=== PATIENT | female | born 1995 | race Caucasian/White ===

== ENCOUNTER 2023-05-06 15:06 | Emergency (ER) | payer BC, OTHER, SELFPAY ==
--- NOTE | 2023-05-06 15:12 | PC.NURSE ---
After checking in pt came back to desk and said this lady over here said she been here all day, I'm not staying. Pt is A/O x 4, no distress, skin pwd and gait is steady
== END 2023-05-06 15:56 | disposition left against medical advice (07) ==
DX: Z53.21 Procedure and treatment not carried out due to patient leaving prior to being seen by health care provider (principal)
CPT/HCPCS: 99199

== ENCOUNTER 2023-05-24 21:08 | Observation (INO) | payer BC, OTHER, SELFPAY ==
[2023-05-24 21:29] VITALS: PULSE 96; O2SAT 99
[2023-05-24 21:34] VITALS: PULSE 87; O2SAT 100
[2023-05-24 21:39] VITALS: PULSE 97; O2SAT 100
[2023-05-24 21:45] VITALS: BMI 45.8
--- NOTE | 2023-05-24 21:45 | OBADM ---
This patient, Moriah Redmond, admitted to the OB room [facility] for observation. Patient/family oriented to hospital policies and general routines including ID bracelet, bed and alarms, visiting hours, pain management, procedures, bathroom and other care routines, personal items, smoking policy, room service/diet, and visiting hours. Patient/Family are encouraged to report perceived risks to care and to ask questions if they do not understand what they are told or what they should do.
[2023-05-24 21:54] VITALS: BP 109/40; PULSE 87
[2023-05-24 22:00] VITALS: BP 118/72; PULSE 85
--- NOTE | 2023-05-24 22:07 | PC.NURSE ---
Dr. Mckeon called and made lombardo pt was here for possible leaking of fluid. ROM plus was negative. Dr. Mckeon made aware patient has been eugenie off and on this week and started eugenie eugenie right when she was put on the monitor. Orders for a dose of terbutaline
--- NOTE | 2023-05-24 22:20 | PC.NURSE ---
Pt is refusing terbutaline. Pt educated on reasoning for it.
[2023-05-24 22:35] LABS: Appearance Urine Clear (Clear); Bilirubin Urine Negative (Negative); Blood Urine Negative (Negative); Color Urine Yellow (Yellow); Glucose Urine UA Negative (Negative); Ketones Urine Negative (Negative); Leukocyte Esterase Ur Negative LEU/UL (Negative); Nitrate Urine Negative (Negative); Protein Urine Negative (Negative); Specific Grav Ur 1.009 (1.001-1.035); pH Urine 6.5 (5.0-9.0)
--- NOTE | 2023-05-24 22:43 | PC.NURSE ---
Dr. Mckeon updated pt is refusing terbutaline but contractions have started to slow down. Orders to do SVE, then watch patient and recheck her. Orders to discharge patient if no change.
[2023-05-24 22:46] LABS: Glucose Point of Care 99 mg/dl (65-105)
[2023-05-24 22:50] LABS: Add Urine Microscopic? NO
--- NOTE | 2023-05-25 13:31 | PM.OBTRLD ---
OB - Triage/Final Diagnosis Visit Information Comments/Additional reasons for admission: I have assessed the risk for this patient, Moriah Redmond, and determined that she would benefit from observation care. Evaluation Laboratory results: Laboratory Tests 05/24/23 05/24/23 22:22 22:31 POC Capillary Glucose 99 Urine Color Yellow Urine Appearance Clear Urine pH 6.5 Ur Specific [place] 1.009 Urine Protein Negative Urine Glucose (UA) Negative Urine Ketones Negative Ur Blood (Man) Negative Urine Nitrate Negative Urine Bilirubin Negative Urine Urobilinogen 1.0 Leukocyte Esterase Rfl Negative Vital signs: Vital Signs - 24 hr 05/24/23 21:29 05/24/23 21:34 05/24/23 21:39 Pulse Rate Blood Pressure Pulse Oximetry 99 100 100 Oxygen Delivery 05/24/23 21:54 05/24/23 22:00 05/24/23 22:19 Pulse Rate 87 85 Blood Pressure 109/40 L 118/72 Pulse Oximetry Oxygen Delivery Room Air Final Diagnosis (1) Abdominal pain affecting : Code(s): O26.899 - Other specified related conditions, unspecified trimester; R10.9 - Unspecified abdominal pain Status: Acute
== END 2023-05-24 23:00 | disposition hospice, home (50) ==
PROVIDERS: Obstetrics & Gynecology; Admitting Provider Student in an Organized Health Care Education/Training Program; Visit Provider Student in an Organized Health Care Education/Training Program
DX: O26.892 Other specified pregnancy related conditions, second trimester (principal); R10.9 Unspecified abdominal pain
CPT/HCPCS: 81003; 82948; G0378; G0379

== ENCOUNTER 2023-06-12 21:44 | Observation (INO) | payer BC, OTHER, SELFPAY ==
--- NOTE | 2023-07-01 14:35 | PM.OBTRLD ---
OB - Triage/Final Diagnosis Visit Information Comments/Additional reasons for admission: I have assessed the risk for this patient, Moriah Redmond, and determined that she would benefit from observation care. Final Diagnosis (1) Decreased movement: Code(s): O36.8190 - Decreased movements, unspecified trimester, not applicable or unspecified Status: Acute
== END 2023-06-13 00:10 | disposition home or self-care (01) ==
LOC: ANHOBOP 07-01 13:31 → ANHLDR 07-01 13:47
PROVIDERS: Admitting Provider Student in an Organized Health Care Education/Training Program; Visit Provider Obstetrics & Gynecology
DX: O36.8190 Decreased fetal movements, unspecified trimester, not applicable or unspecified (principal); Z3A.00 Weeks of gestation of pregnancy not specified
CPT/HCPCS: G0378; G0379

== ENCOUNTER 2023-07-13 13:15 | Outpatient (RCR) | payer BC, OTHER, SELFPAY ==
--- NOTE | ~2023-07-13 | US_ITS ---
US OB BPP wo non-stress DATE: 07/13/2023 15:45 INDICATION: Decreased movement TECHNIQUE: Real-time imaging and Doppler analysis COMPARISON: 02/15/2023 obstetrical ultrasound via transvaginal approach FINDINGS: Live shetty intrauterine gestation, fetus in longitudinal lie, breech presentation with heart rate 148 bpm. Posterior placenta. Subjectively normal amount of amniotic fluid. BIOPHYSICAL PROFILE reported by test engineering technician: breathin out of 2 movement: 2 out of 2 tone: 2 out of 2 Amniotic fluid pocket: 2 out of 2 Total score: 8 normal out of 8 IMPRESSION: Biophysical profile score of 8 out of 8 Breech presentation Reviewed, dictated and finalized at [facility]. Reviewed, dictated and finalized at [facility].
[2023-07-13 14:55] VITALS: BP 132/85; PULSE 99
== END 2023-10-11 23:59 | disposition home or self-care (01) ==
LOC: ANHOBOP 13:15
PROVIDERS: Visit Provider Student in an Organized Health Care Education/Training Program
DX: O36.8130 Decreased fetal movements, third trimester, not applicable or unspecified (principal); Z3A.28 28 weeks gestation of pregnancy
CPT/HCPCS: 59025; 76819